=== PATIENT | female | born 1950 | race Caucasian/White ===

== ENCOUNTER 2018-01-25 09:00 | Day surgery (SDC) | payer MEDICARE ==
[2018-01-25] MEDS: CYCLOPENTOLATE 2% OPHTH SOLN 2ML BTL OS (08:49)
[2018-01-25] MEDS: LIDOCAINE 3.5 % 1ML OPHTH TOPICAL GEL OU (08:50)
[2018-01-25] MEDS: PHENYLEPHRINE 2.5% OPHTH SOL 2ML OS (08:50)
[2018-01-25] MEDS: TROPICAMIDE 1% OPHTH SOLN 2ML OS (08:50)
[2018-01-25] MEDS: OFLOXACIN 0.3 % (OCUFLOX) OPTH SOL 5ML OS (08:50)
[~2018-01-25 09:00] MED LIST: ACETAMINOPHEN 325 MG TAB PO; PHENYLEPHRINE HCL 10 % OPHTH. SOL 5ML OS; PROPARACAINE 0.5% OPHTH SOL 15ML OS
[2018-01-25] MEDS ORDERED: fentaNYL 100 MCG/2 ML INJECTION (J3010) As Ordered (09:49)
[2018-01-25] MEDS ORDERED: MIDAZOLAM INJ 2 MG/2 ML VIAL (J2250) As Ordered (09:49)
[2018-01-25] MEDS: POVIDONE-IODINE 5% OPHTH PREP SOL 30ML As Ordered (10:11)
[2018-01-25] MEDS: BALANCED SALT IRRIGATION SOLUTION 500ML BAG (FOR OR EYE MACHINE) As Ordered (10:11)
[2018-01-25] MEDS: HEALON DUET (HEALON 10MG/ML 0.55ML & HEALON ENDOCOAT 30MG/ML 0.85ML) As Ordered (10:12)
[2018-01-25] MEDS: ACETYLCHOLINE OPHTH SOLN 1% 2ML (MIOCHOL-E) As Ordered (10:12)
[2018-01-25] MEDS: CEFUROXIME 1MG/0.1ML INTRACAMERAL INJ As Ordered (10:12)
[2018-01-25] MEDS: LIDOCAINE 1% SDV 5 ML VIAL As Ordered (10:12)
[2018-01-25] MEDS ORDERED: ONDANSETRON 4MG/2ML VIAL (J2405) As Ordered (10:36)
[2018-01-25] MEDS: AcetaZOLAMIDE 500 MG ER CAP PO (10:45)
[2018-01-25] MEDS: KETOROLAC 0.5% OPHTH SOLN OS (10:45)
[2018-01-25] MEDS ORDERED: TRIMETHOBENZAMIDE 300 MG CAP PO (10:45)
== END 2018-01-25 10:55 | disposition home or self-care (01) ==
LOC: M SDC 09:00
DX: H25.12 Age-related nuclear cataract, left eye (principal); Z87.891 Personal history of nicotine dependence
CPT/HCPCS: 66984

== ENCOUNTER 2018-02-01 09:25 | Day surgery (SDC) | payer MEDICARE ==
[~2018-02-01 09:25] MED LIST changes: +PHENYLEPHRINE HCL 10 % OPHTH. SOL 5ML OD; -PHENYLEPHRINE HCL 10 % OPHTH. SOL 5ML OS; +PROPARACAINE 0.5% OPHTH SOL 15ML OD; -PROPARACAINE 0.5% OPHTH SOL 15ML OS
[2018-02-01] MEDS ORDERED: MIDAZOLAM INJ 2 MG/2 ML VIAL (J2250) As Ordered (09:56)
[2018-02-01] MEDS ORDERED: fentaNYL 100 MCG/2 ML INJECTION (J3010) As Ordered (09:56)
[2018-02-01] MEDS: CYCLOPENTOLATE 2% OPHTH SOLN 2ML BTL OD (10:58)
[2018-02-01] MEDS: TROPICAMIDE 1% OPHTH SOLN 2ML OD (10:58)
[2018-02-01] MEDS: PHENYLEPHRINE 2.5% OPHTH SOL 2ML OD (10:58)
[2018-02-01] MEDS: OFLOXACIN 0.3 % (OCUFLOX) OPTH SOL 5ML OD (10:59)
[2018-02-01] MEDS: LIDOCAINE 3.5 % 1ML OPHTH TOPICAL GEL OU (10:59)
[2018-02-01] MEDS: POVIDONE-IODINE 5% OPHTH PREP SOL 30ML As Ordered (12:32)
[2018-02-01] MEDS ORDERED: ONDANSETRON 4MG/2ML VIAL (J2405) As Ordered (12:34)
[2018-02-01] MEDS: BALANCED SALT IRRIGATION SOLUTION 500ML BAG (FOR OR EYE MACHINE) As Ordered (12:34)
[2018-02-01] MEDS: CEFUROXIME 1MG/0.1ML INTRACAMERAL INJ As Ordered (12:34)
[2018-02-01] MEDS: HEALON DUET (HEALON 10MG/ML 0.55ML & HEALON ENDOCOAT 30MG/ML 0.85ML) As Ordered (12:34)
[2018-02-01] MEDS: LIDOCAINE 1% SDV 5 ML VIAL As Ordered (12:34)
[2018-02-01] MEDS ORDERED: dexameTHASONE 4 MG/ML 1ML VIAL (J1100) As Ordered (12:34)
[2018-02-01] MEDS: AcetaZOLAMIDE 500 MG ER CAP PO (13:27)
[2018-02-01] MEDS: KETOROLAC 0.5% OPHTH SOLN OD (13:27)
[2018-02-01] MEDS ORDERED: TRIMETHOBENZAMIDE 300 MG CAP PO (13:30)
== END 2018-02-01 14:09 | disposition home or self-care (01) ==
LOC: M SDC 09:25
DX: H25.11 Age-related nuclear cataract, right eye (principal); M12.9 Arthropathy, unspecified; Z90.710 Acquired absence of both cervix and uterus; Z87.891 Personal history of nicotine dependence
CPT/HCPCS: 66984

== ENCOUNTER → 2021-02-28 | Outpatient (REF) | payer MEDICARE ==
[2021-02-28 22:30] LABS: APPEARANCE, URINE HAZY (CLEAR); BACTERIA, URINE AUTO NEGATIVE (NEGATIVE); BILIRUBIN, URINE AUTO NEGATIVE (NEGATIVE); BLOOD, URINE BLOOD NEGATIVE (NEGATIVE); COLOR, URINE YELLOW (YELLOW); GLUCOSE, URINE (UA) AUTO NEGATIVE (NEGATIVE); KETONE, URINE AUTO TRACE mg/dL (NEGATIVE); LEUKOCYTE ESTERASE, URINE AUTO NEGATIVE (NEGATIVE); MUCUS, URINE SMALL (NEGATIVE); NITRITE, URINE AUTO NEGATIVE (NEGATIVE); PROTEIN, URINE AUTO NEGATIVE (NEGATIVE); RBC, URINE AUTO 0 /HPF (0-3); SPECIFIC GRAVITY URINE AUTO 1.025 (1.002-1.035); SQUAMOUS EPITHELIAL CELL UR AU 5 /HPF (0-6); UROBILINOGEN, URINE AUTO 0.2 mg/dL (0.0-2.0); WBC, URINE AUTO 1 /HPF (0-3)
== END ==
LOC: M LAB REF 21:49
PROVIDERS: ATTEND Physician Assistant Medical
DX: N39.0 Urinary tract infection, site not specified (principal)

== ENCOUNTER → 2021-03-09 | Outpatient (REF) | payer MEDICARE | LOC: M SFHCPLAZ 13:00 | PROVIDERS: ATTEND Nurse Practitioner Adult Health | DX: R35.0 Frequency of micturition (principal) ==